=== PATIENT | male | born 1940 | race Caucasian/White ===

== ENCOUNTER 2017-06-30 23:50 | Inpatient (IN) | payer MEDICARE, OTHER ==
--- NOTE | 2017-07-01 00:09 | ED Physician Chart ---
ED Chief Complaint/HPI - Patient Information Date Seen:: 07/01/17 Time Seen:: 00:00 Chief Complaint:: increased agitation History of Present Illness:: Patient exhibiting increased agitation and increased anxiety [facility]. Historian:: Patient Review:: Nurse's Note Reviewed, Transfer documents Reviewed ED Review of Systems - Review of Systems General/Constitutional: No fever, No chills Skin: No skin lesions Head: No headache Eyes: No loss of vision ENT: No earache Neck: No neck pain, No swelling Cardio Vascular: No chest pain, No palpitations Pulmonary: SOB, Other (palacios has chronic shortness of breath) GI: No nausea, No vomiting, No diarrhea Musculoskeletal: No bone or joint pain Endocrine: No polyuria, No polydipsia Psychiatric: Prior psych history ED Past Medical History - Past Medical History Past Medical History: HTN, CHF, Asthma/COPD, Dyslipidemia Family History: None Social History: No Alcohol, Other Surgical History: other (surgeries for peptic ulcer disease) Psychiatricy History: Other (anxiety) Family Medical History - Family Member Mother History Unknown: Yes ED Physical Exam - Physical Examination General/Constitutional: Well-developed, well-nourished, Alert, No distress Head: Atraumatic Eyes: Lids, conjuctiva normal, PERRL Other Skin comments:: Stasis dermatitis lower leg ENMT: External ears, nose nl, TM canals nl, Nasal exam nl Other ENMT comments:: Edentulous Neck: No nuchal rigidity Respiratory: Nl effort/Exclusion, Clear to Auscultation Cardio Vascular: RRR, No murmur, gallop, rubs GI: No tenderness/rebounding/guarding Extremities: Normal digits & nails Other Extremities comments:: 2 out of 4 pretibial pitting edema Neuro/Psych: No focal deficits ED Labs/Radiology/EKG Results - Lab Results Results: Laboratory Results - last 24 hr 07/01/17 07/01/17 07/01/17 00:15 00:15 00:15 WBC 7.8 RBC 5.10 Hgb 13.8 Hct 41.4 MCV 81.1 MCH 27.0 MCHC Differential 33.3 RDW 13.0 Plt Count 261 MPV 7.7 Neutrophils % 69.1 Lymphocytes % 22.6 Monocytes % 5.8 Eosinophils % 2.4 Basophils % 0.1 Sodium 126 L Potassium 4.4 Chloride 93 L Carbon Dioxide 29.7 Anion Gap 7.7 BUN 22 Creatinine 0.9 Est GFR ( Amer) TNP Est GFR (Non-Af Amer) TNP BUN/Creatinine Ratio 24.4 Glucose 267 H Calcium 9.8 Total Bilirubin 0.9 AST 16 ALT 14 Alkaline Phosphatase 57 Total Protein 6.9 Albumin 4.3 Globulin 2.6 Albumin/Globulin Ratio 1.7 Triglycerides 104 Cholesterol 122 LDL Cholesterol Direct 63 L HDL Cholesterol 48 TSH 3.42 Urine Source Urine Color Urine Clarity Urine pH Ur Specific [place] Urine Protein Urine Glucose (UA) Urine Ketones Urine Blood Urine Nitrate Urine Bilirubin Urine Urobilinogen Ur Leukocyte Esterase Urine RBC Urine WBC Ur Epithelial Cells Urine Bacteria 07/01/17 00:30 WBC RBC Hgb Hct MCV MCH MCHC Differential RDW Plt Count MPV Neutrophils % Lymphocytes % Monocytes % Eosinophils % Basophils % Sodium Potassium Chloride Carbon Dioxide Anion Gap BUN Creatinine Est GFR ( Amer) Est GFR (Non-Af Amer) BUN/Creatinine Ratio Glucose Calcium Total Bilirubin AST ALT Alkaline Phosphatase Total Protein Albumin Globulin Albumin/Globulin Ratio Triglycerides Cholesterol LDL Cholesterol Direct HDL Cholesterol TSH Urine Source CLEAN C Urine Color YELLOW Urine Clarity CLEAR Urine pH 5.5 Ur Specific [place] 1.010 Urine Protein NEGATIVE Urine Glucose (UA) 500 H Urine Ketones NEGATIVE Urine Blood NEGATIVE Urine Nitrate NEGATIVE Urine Bilirubin NEGATIVE Urine Urobilinogen 0.2 Ur Leukocyte Esterase NEGATIVE Urine RBC 0-2 H Urine WBC 0-2 Ur Epithelial Cells RARE Urine Bacteria OCCASIONAL - EKG Interpretations Rate & Rhythm: atrial fibrillation with a rate of 70 [place]: left Comments:: Left bundle-branch block ED Septic Shock - . Is Septic Shock (SBP<90, OR Lactate>4 mmol\L) present?: No ED Reassessment (Disposition) - Reassessment Reassessment Condition:: Unchanged - Diagnosis Diagnosis:: Agitation - Aftercare/Follow up Instructions Aftercare/Follow-Up Instructions:: Refer to Discharge Instructions - Patient Disposition Admitted to:: [facility] Admitting Medical Physician:: Prasanth Negron Admitting Psych Physician:: Marla Wu
[2017-07-01 00:28] LABS: % BASOPHILS 0.1 % (0.0-2.0); % EOSINOPHILS 2.4 % (0.0-5.0); % LYMPHOCYTES 22.6 % (20.0-50.0); % MONOCYTES 5.8 % (2.0-10.0); % NEUTROPHILS 69.1 % (40.0-80.0); EOSINOPHILE ABSOLUTE 0.2 Th/cmm (0.1-0.4); HEMATOCRIT 41.4 % (41.0-60); HEMOGLOBIN 13.8 gm/dL (12-16); LYMPHOCYTE ABSOLUTE 1.8 Th/cmm (1.5-3.0); MEAN CELL VOLUME 81.1 fl (80-99); MEAN CORPUSCULAR HGB CONC 33.3 pg (28.0-36.0); MEAN PLATELET VOLUME 7.7 fl; MONOCYTE ABSOLUTE 0.5 Th/cmm (0.3-1.0); NEUTROPHILE ABSOLUTE 5.3 Th/cmm (1.8-8.0); PLATELET COUNT 261 Th/cmm (150-400); WHITE BLOOD COUNT 7.8 Th/cmm (4.8-10.8)
[2017-07-01 00:36] LABS: URINE MICROSCOPIC INDICATED? YES; URINE SOURCE CLEAN C
[2017-07-01 00:40] LABS: URINE BILIRUBIN NEGATIVE (NEGATIVE); URINE BLOOD NEGATIVE (NEGATIVE); URINE GLUCOSE (UA) 500 mg/dL (NEGATIVE); URINE KETONE NEGATIVE (NEGATIVE); URINE LEUKOCYTE ESTERASE NEGATIVE (NEGATIVE); URINE NITRATE NEGATIVE (NEGATIVE); URINE PH 5.5 (4.6 - 8.0); URINE PROTEIN NEGATIVE (NEGATIVE); URINE UROBILINOGEN 0.2 E.U./dL (0.2 - 1.0)
[2017-07-01 00:41] LABS: URINE BACTERIA OCCASIONAL /hpf (NONE SEEN); URINE CLARITY CLEAR (CLEAR); URINE COLOR YELLOW; URINE EPITHELIAL CELLS RARE /lpf (FEW); URINE RBC 0-2 /hpf (0-5); URINE WBC 0-2 /hpf (0-5)
[2017-07-01 00:42] LABS: ALB/GLOB RATIO 1.7 (1.0-1.8); ALBUMIN 4.3 gm/dL (4.2-5.5); ALKALINE PHOSPHATASE 57 U/L (34-104); ANION GAP 7.7 (7.0-16.0); BILIRUBIN,TOTAL 0.9 mg/dL (0.3-1.0); BUN - UREA NITROGEN 22 mg/dL (7-25); CALCIUM SERUM 9.8 mg/dL (8.6-10.3); CARBON DIOXIDE 29.7 mEq/L (21.0-31.0); CHLORIDE 93 mEq/L (98-107); CHOLESTEROL 122 mg/dL (<200); CREATININE - SERUM 0.9 mg/dL (0.7-1.3); GLUCOSE 267 mg/dL (70-105); HDL -HIGH DENSITY LIPOPROTEIN 48 mg/dL (23-92); POTASSIUM SERUM 4.4 mEq/L (3.5-5.1); SGOT 16 U/L (13-39); SGPT/ALT 14 U/L (7-52); SODIUM SERUM 126 mEq/L (136-145); TOTAL PROTEIN,SERUM 6.9 gm/dL (6.0-8.3); TRIGLYCERIDES 104 mg/dL (<150)
[2017-07-01 03:11] VITALS: BP 117/76
[2017-07-01] MEDS ORDERED: Albuterol/Ipratropium Neb 3 ML AERS HHN PRN (03:32)
[2017-07-01] MEDS ORDERED: Magnesium Hydroxide (MOM) 30 mL UDC PO PRN (03:32)
[2017-07-01] MEDS ORDERED: Oxymetazoline 0.05% 15 mL Spray NS PRN (03:32)
[2017-07-01] MEDS: Saline 0.65% Nasal Spray NS SCH ×3 (06:04→18:28)
[2017-07-01] MEDS ORDERED: INSULIN ASPART, RECOMBINANT 100 UNITS/ML SUBQ PRN ×2 (07:30)
[2017-07-01] MEDS ORDERED: INSULIN ASPART, RECOMBINANT 100 UNITS/ML SUBQ SCH (08:33)
[2017-07-01] MEDS: Multivitamin w/ Minerals Tab PO SCH (08:39)
[2017-07-01] MEDS: Aspirin 81mg Chewable Tab PO SCH (08:41)
[2017-07-01] MEDS: POLYETHYLENE GLYCOL 3350 17 GM PACK PO SCH (08:41)
[2017-07-01] MEDS ORDERED: Non-Formulary Item 1 EA (Melatonin [Melatonin] 3 MG) PO SCH (09:00)
[2017-07-01] MEDS: Fluticasone Propionate 0.05mg/Actuation 16gm Nasal Spray NS SCH ×2 (10:40→16:18)
[2017-07-01] MEDS: INSULIN ASPART, RECOMBINANT 100 UNITS/ML SUBQ SCH ×3 (12:11→21:20)
[2017-07-01 13:23] LABS: A1C % 11.4 % (4.0-6.0)
[2017-07-01] MEDS: Insulin Detemir 100 units/mL 10mL Vial SUBQ SCH (21:18)
--- NOTE | 2017-07-02 00:45 | History & Physical ---
ADMIT DATE: 07/01/2017 REASON FOR ADMISSION: Psychiatric disorders. HISTORY OF PRESENT ILLNESS: A 77-year-old male with underlying history of morbid obesity, hypertension, hyperlipidemia, diabetes mellitus, chronic atrial fibrillation, mental disorders, diabetic neuropathy, who was admitted for evaluation of the psychiatric illness by Dr. Wu who already requested medical H and P on this patient. The patient says he is doing fine. He denies any chest pain. No shortness of breath. No dizziness, palpitations or any other complaints. PAST MEDICAL HISTORY: Hypertension, hyperlipidemia, morbid obesity, chronic constipation, chronic AFib. FAMILY HISTORY: Noncontributory. SOCIAL HISTORY: Lives at home. No reported alcohol, tobacco or street drug use. CURRENT MEDICATIONS: On multiple medications including Diovan, tramadol, Aldactone, [place] nasal spray, Zocor, Xarelto, Seroquel, MiraLax, Afrin, Glucophage, Levemir, Neurontin, Lasix, Flonase, Colace, Coreg, aspirin, DuoNeb. REVIEW OF SYSTEMS: The patient denies any fever, no chills, no nausea, no vomiting, no abdominal pain, no diarrhea, no constipation, no headache or other complaints. PHYSICAL EXAMINATION: VITAL SIGNS: Temperature 97.7, pulse 78, respirations 19, blood pressure ____ 97% on room air. GENERAL APPEARANCE: The patient does not seem in acute distress, lying comfortably. HEENT: No neck stiffness. Negative rigidity. CHEST: Clear to auscultation. HEART: S1 and S2 normal. No murmurs. ABDOMEN: Soft and nontender. No guarding. NEUROLOGIC: The patient is awake, moves all extremities, grossly nonfocal exam. EXTREMITIES: ____ +1 pitting edema noted in both lower extremities. LABORATORY DATA: Available laboratory ____. ASSESSMENT: Hypertension, diabetes mellitus, hyperlipidemia, morbid obesity, depended edema in both lower extremities, mental health disorders, heart failure unspecified. PLAN: The patient will be continued on Xarelto, Diovan, Zocor, insulin. Blood sugar monitor by Accu-Chek. Monitor vital signs ____ oxygen support, bronchodilators as needed. Psych evaluation and management per Psychiatry. Plan of care discussed with nursing staff. JOB# [id number]
--- NOTE | 2017-07-02 01:31 | Psychosocial Evaluation ---
DATE OF SERVICE: INITIAL EVALUATION AND MENTAL STATUS EXAM PATIENT'S AGE: 77. SEX: Male. PHYSICIAN: Marla Wu M.D., M.P.H. CHIEF COMPLAINT: Agitation and confusion. HISTORY OF PRESENT ILLNESS: The patient is a 77-year-old male who was transferred from [facility] because of confusion and increased agitation. The patient also has been depressed and wants to be left alone and in angry mood. The patient also has been banging on the wall. The patient also has been suspicious and paranoid and unable to follow directions. PAST PSYCHIATRIC HISTORY: The patient has a history of dementia and also history of psychosis. Also has history of depression and the patient is on Celexa and gabapentin. SOCIAL HISTORY: The patient lives in [facility]. No known alcohol or drug use. ALLERGIES: BENZODIAZEPINES. MENTAL STATUS EXAMINATION: The patient appears his stated age. Agitated. Irritable and angry mood. Thought processes are circumstantial with flight of ideas. The patient denies hallucinations, but is paranoid and delusional. The patient denies suicidal or homicidal ideations. The patient is alert, but disoriented to time, place, person and situation. The patient was able to remember his date, but cannot remember where he lives or immediate memory is poor as well as recent memory. Poor insight and poor judgment. ASSESSMENT: PRIMARY DIAGNOSIS: Unspecified psychosis. SECONDARY DIAGNOSES: Alzheimer disease, moderate to severe, with psychotic features. TREATMENT PLAN: We will continue monitoring his behavior closely. Also, continue Celexa and will add Seroquel in a dose of 25 mg twice a day and will adjust the dose. ESTIMATED LENGTH OF STAY: 5-7 days. THE PATIENT'S STRENGTHS AND WEAKNESSES: The patient's strength seems to be in relatively fair health. Weakness is poor. Impulse control. AFTER DISCHARGE PLAN: Outpatient treatment and followup. The patient will return to [facility]. CRITERIA FOR DISCHARGE: Better impulse control and less agitated. [facility]# [id number]
[2017-07-02] MEDS: Saline 0.65% Nasal Spray NS SCH ×4 (01:34→18:28)
--- NOTE | 2017-07-02 02:00 | Progress Notes ---
DATE: 07/01/2017 SUBJECTIVE: Chart reviewed and the patient interviewed. Also discussed the patient's condition with the staff and reviewed records and labs. The patient continued to be extremely agitated and he is still yelling and screaming constantly. The patient also is still in angry and in irritable mood. The patient also is a high fall risk and continued to be monitored closely. The patient also is confused and forgetful. Otherwise, the patient is compliant with taking his medications with no side effects of medications except the patient is allergic to benzodiazepines. ASSESSMENT: The patient is still agitated and confused. TREATMENT PLAN: We will continue monitoring his behavior and his condition closely. Also, we will continue adjusting psychotropic medications and we will add Seroquel in a dose of 25 mg twice a day and will continue to follow up. [facility]# [id number]
[2017-07-02] MEDS: INSULIN ASPART, RECOMBINANT 100 UNITS/ML SUBQ SCH ×4 (06:37→21:32)
[2017-07-02] MEDS: POLYETHYLENE GLYCOL 3350 17 GM PACK PO SCH (08:18)
[2017-07-02] MEDS: Aspirin 81mg Chewable Tab PO SCH (08:20)
[2017-07-02] MEDS: Multivitamin w/ Minerals Tab PO SCH (08:21)
[2017-07-02] MEDS: Fluticasone Propionate 0.05mg/Actuation 16gm Nasal Spray NS SCH ×2 (08:24→16:40)
[2017-07-02] MEDS: Insulin Detemir 100 units/mL 10mL Vial SUBQ SCH (21:37)
[2017-07-03] MEDS: Saline 0.65% Nasal Spray NS SCH ×5 (00:36→23:37)
[2017-07-03] MEDS: INSULIN ASPART, RECOMBINANT 100 UNITS/ML SUBQ SCH ×4 (06:50→20:17)
--- NOTE | 2017-07-03 09:01 | Progress Notes ---
DATE: 07/02/2017 SUBJECTIVE: Chart reviewed and the patient interviewed. Also, discussed the patient's condition with the staff and reviewed records and labs. The patient is still agitated and he is still awake most of the time with difficulty sleeping at night. The patient also is still restless and he still has difficulty expressing himself or his feelings. Also, complaining of abdominal pain. The patient also is restless and needs lot of close monitoring. Otherwise, the patient is compliant with taking medications and no side effects of medications. ASSESSMENT: The patient is still agitated and psychotic. TREATMENT PLAN: Continue to monitor his behavior and condition closely. Also, continue to work on his anger and irritability and continue to follow up. [facility]# [id number]
[2017-07-03] MEDS: POLYETHYLENE GLYCOL 3350 17 GM PACK PO SCH (09:05)
[2017-07-03] MEDS: Multivitamin w/ Minerals Tab PO SCH (09:06)
[2017-07-03] MEDS: Aspirin 81mg Chewable Tab PO SCH (09:06)
[2017-07-03] MEDS: Fluticasone Propionate 0.05mg/Actuation 16gm Nasal Spray NS SCH ×2 (09:24→16:43)
[2017-07-03] MEDS ORDERED: Lactulose 10 Gm/15 mL 30mL UDC PO ONE (14:10)
[2017-07-03] MEDS: Insulin Detemir 100 units/mL 10mL Vial SUBQ SCH (20:17)
[2017-07-03] MEDS: Oxymetazoline 0.05% 15 mL Spray NS SCH (20:52)
--- NOTE | 2017-07-03 22:34 | General Progress Note ---
Subjective - Review of Systems Service Date: 07/03/17 Subjective: patient seen and examined c/o constipation denied vomiting or abd pain Objective - Results Result Diagrams: 07/01/17 00:15 07/01/17 00:15 Recent Labs: Laboratory Last Values WBC 7.8 Th/cmm (4.8-10.8) 07/01/17 00:15 RBC 5.10 Mil/cmm (3.80-5.80) 07/01/17 00:15 Hgb 13.8 gm/dL (12-16) 07/01/17 00:15 Hct 41.4 % (41.0-60) 07/01/17 00:15 MCV 81.1 fl (80-99) 07/01/17 00:15 MCH 27.0 pg (27.0-31.0) 07/01/17 00:15 MCHC Differential 33.3 pg (28.0-36.0) 07/01/17 00:15 RDW 13.0 % (11.5-20.0) 07/01/17 00:15 Plt Count 261 Th/cmm (150-400) 07/01/17 00:15 MPV 7.7 fl 07/01/17 00:15 Neutrophils % 69.1 % (40.0-80.0) 07/01/17 00:15 Lymphocytes % 22.6 % (20.0-50.0) 07/01/17 00:15 Monocytes % 5.8 % (2.0-10.0) 07/01/17 00:15 Eosinophils % 2.4 % (0.0-5.0) 07/01/17 00:15 Basophils % 0.1 % (0.0-2.0) 07/01/17 00:15 Sodium 126 mEq/L (136-145) L 07/01/17 00:15 Potassium 4.4 mEq/L (3.5-5.1) 07/01/17 00:15 Chloride 93 mEq/L (98-107) L 07/01/17 00:15 Carbon Dioxide 29.7 mEq/L (21.0-31.0) 07/01/17 00:15 Anion Gap 7.7 (7.0-16.0) 07/01/17 00:15 BUN 22 mg/dL (7-25) 07/01/17 00:15 Creatinine 0.9 mg/dL (0.7-1.3) 07/01/17 00:15 Est GFR ( Amer) TNP 07/01/17 00:15 Est GFR (Non-Af Amer) TNP 07/01/17 00:15 BUN/Creatinine Ratio 24.4 07/01/17 00:15 Glucose 267 mg/dL (70-105) H 07/01/17 00:15 POC Glucose 341 MG/DL (70 - 105) H 07/03/17 19:45 Hemoglobin A1c % 11.4 % (4.0-6.0) H 07/01/17 00:15 Calcium 9.8 mg/dL (8.6-10.3) 07/01/17 00:15 Total Bilirubin 0.9 mg/dL (0.3-1.0) 07/01/17 00:15 AST 16 U/L (13-39) 07/01/17 00:15 ALT 14 U/L (7-52) 07/01/17 00:15 Alkaline Phosphatase 57 U/L (34-104) 07/01/17 00:15 Total Protein 6.9 gm/dL (6.0-8.3) 07/01/17 00:15 Albumin 4.3 gm/dL (4.2-5.5) 07/01/17 00:15 Globulin 2.6 gm/dL 07/01/17 00:15 Albumin/Globulin Ratio 1.7 (1.0-1.8) 07/01/17 00:15 Triglycerides 104 mg/dL (<150) 07/01/17 00:15 Cholesterol 122 mg/dL (<200) 07/01/17 00:15 LDL Cholesterol Direct 63 mg/dL (75-193) L 07/01/17 00:15 HDL Cholesterol 48 mg/dL (23-92) 07/01/17 00:15 TSH 3.42 uIU/ml (0.34-5.60) 07/01/17 00:15 Urine Source CLEAN C 07/01/17 00:30 Urine Color YELLOW 07/01/17 00:30 Urine Clarity CLEAR (CLEAR) 07/01/17 00:30 Urine pH 5.5 (4.6 - 8.0) 07/01/17 00:30 Ur Specific [place] 1.010 (1.005-1.030) 07/01/17 00:30 Urine Protein NEGATIVE mg/dL (NEGATIVE) 07/01/17 00:30 Urine Glucose (UA) 500 mg/dL (NEGATIVE) H 07/01/17 00:30 Urine Ketones NEGATIVE mg/dL (NEGATIVE) 07/01/17 00:30 Urine Blood NEGATIVE (NEGATIVE) 07/01/17 00:30 Urine Nitrate NEGATIVE (NEGATIVE) 07/01/17 00:30 Urine Bilirubin NEGATIVE (NEGATIVE) 07/01/17 00:30 Urine Urobilinogen 0.2 E.U./dL (0.2 - 1.0) 07/01/17 00:30 Ur Leukocyte Esterase NEGATIVE (NEGATIVE) 07/01/17 00:30 Urine RBC 0-2 /hpf (0-5) H 07/01/17 00:30 Urine WBC 0-2 /hpf (0-5) 07/01/17 00:30 Ur Epithelial Cells RARE /lpf (FEW) 07/01/17 00:30 Urine Bacteria OCCASIONAL /hpf (NONE SEEN) 07/01/17 00:30 RPR NONREACTIVE (NONREACTIVE) 07/01/17 00:15 - Physical Exam Vitals and I&O: Vital Signs Temp 98.4 F 07/03/17 20:11 Pulse 62 07/03/17 20:57 Resp 20 07/03/17 20:57 BP 116/97 07/03/17 20:11 Pulse Ox 98 07/03/17 20:57 Intake & Output 07/03/17 07/03/17 07/04/17 06:59 18:59 06:59 Intake Total 720 1200 240 Output Total 1 Balance 720 1200 239 Intake: Oral 720 1200 240 Output: Stool 1 Other: # Voids 1 3 1 Active Medications: Current Medications Acetaminophen (Tylenol) 650 mg PO Q4HR PRN PRN Reason: Pain or Fever >101 Stop: 08/30/17 03:31 Albuterol/Ipratropium (Duoneb Neb) 3 ml HHN Q4HR PRN PRN Reason: Shortness of Breath Stop: 08/30/17 03:31 Aspirin (Aspirin Chewable) 81 mg PO DAILY AN Stop: 08/30/17 08:59 Last Admin: 07/03/17 09:06 Dose: 81 mg Carvedilol (Coreg) 3.125 mg PO BID [facility] Stop: 08/30/17 08:59 Last Admin: 07/03/17 16:41 Dose: 3.125 mg Citalopram Hydrobromide (Celexa) 20 mg PO DAILY AN PRN Reason: Protocol Stop: 08/30/17 08:59 Last Admin: 07/03/17 09:07 Dose: 20 mg Docusate Sodium (Colace) 250 mg PO DAILY AN Stop: 08/30/17 08:59 Last Admin: 07/03/17 09:06 Dose: 250 mg Fluticasone Propionate (Flonase) 1 spr NS BID AN Stop: 08/30/17 08:59 Last Admin: 07/03/17 16:43 Dose: 1 spr Furosemide (Lasix) 40 mg PO BID [facility] Stop: 08/30/17 08:59 Last Admin: 07/03/17 16:41 Dose: 40 mg Gabapentin (Neurontin) 100 mg PO BID AN Stop: 08/30/17 08:59 Last Admin: 07/03/17 16:42 Dose: 100 mg Insulin Aspart (Novolog) 1 units SUBQ ACHS [facility] PRN Reason: Protocol Stop: 08/30/17 08:32 Last Admin: 07/03/17 20:17 Dose: 8 unit Insulin Detemir (Levemir Insulin) 22 units SUBQ HS [facility] Stop: 08/30/17 20:59 Last Admin: 07/03/17 20:17 Dose: 22 units Lactulose (Cephulac) 30 gm PO PRN PRN Reason: Constipation Stop: 09/02/17 19:59 Metformin HCl (Glucophage) 500 mg PO AC [facility] Stop: 08/30/17 11:29 Last Admin: 07/03/17 16:41 Dose: 500 mg Oxymetazoline HCl (Afrin) 2 spr NS Q12HR [facility] Stop: 07/06/17 21:00 Last Admin: 07/03/17 20:52 Dose: 2 spr Polyethylene Glycol (Miralax) 17 gm PO DAILY [facility] Stop: 08/30/17 08:59 Last Admin: 07/03/17 09:05 Dose: 17 gm Quetiapine Fumarate (Seroquel) 25 mg PO BID AN PRN Reason: Protocol Stop: 08/30/17 08:59 Last Admin: 07/03/17 16:41 Dose: 25 mg Quetiapine Fumarate (Seroquel) 25 mg PO Q6HR PRN; Protocol PRN Reason: Agitation Stop: 08/30/17 11:59 Rivaroxaban (Xarelto) 20 mg PO HS AN Stop: 08/30/17 20:59 Last Admin: 07/03/17 20:18 Dose: 20 mg Simvastatin (Zocor) 40 mg PO HS AN PRN Reason: Protocol Stop: 08/30/17 20:59 Last Admin: 07/03/17 20:18 Dose: 40 mg Sodium Chloride ([place] Nasal [place]) 2 spr NS Q6HR AN Stop: 08/30/17 05:59 Last Admin: 07/03/17 18:48 Dose: 2 spr Spironolactone (Aldactone) 25 mg PO DAILY AN Stop: 08/30/17 08:59 Last Admin: 07/03/17 09:07 Dose: 25 mg Tramadol HCl (Ultram) 50 mg PO TID AN Stop: 08/30/17 08:59 Last Admin: 07/03/17 20:18 Dose: 50 mg Valsartan (Diovan) 160 mg PO DAILY [facility] Stop: 08/30/17 08:59 Last Admin: 07/03/17 09:07 Dose: 160 mg Cardiovascular: Regular rate Lungs: Clear to auscultation Abdomen: Soft, no Tender Assessment/Plan - Assessment Assessment: Constipation DM II DVT HTN Sleep apnea Psych disorder - Plan Plan: Lactulose ordered if not [place] suppository Oxygen Monitor vital and blood sugar Plan of care discussed with nursing staff [facility] Nutritional Asmnt/Malnutr-PDOC - Dietary Evaluation Malnutrition Findings (Please click <Entered> for more info): Nutritional Asmnt/Malnutrition Start: 07/01/17 14: 20 Text: Status: Complete Freq: Document 07/01/17 14:22 LCHENG (Rec: 07/01/17 14:41 [email or web address] [id number]) Nutritional Asmnt/Malnutrition Patient General Information Nutritional Screening High Risk Diagnosis agitation, psychosis NOS Pertinent Medical Hx/Surgical Hx HTN, CHF, asthma/COPD, dyslipidemia, anxiety, surgery for peptic ulcer disease Subjective Information Pt seen sleeping in bed at time of visit, lunch tray at bedside. Spoke with RN, pt is obese, not ambulated. Pt was anxious to get cans of macral fish, said it is essential to him. Current Diet Order/ Nutrition Support PHAM, CCHO, mech soft chopped Pertinent Medications colace, lasix, novolog, levemir, glucophage, miralax, seroquel Pertinent Labs 07/01 Na 126, K 4.4, Cl 93, BUN 22, Cr 0.9, Glucose 267, POC 286, A1c 11.4 Nutritional Hx/Data Height 1.88 m Height (Calculated Centimeters) 188.0 Current Weight (lbs) 153.768 kg Weight (Calculated Kilograms) 153.8 Weight (Calculated Grams) 611507.8 [place] Body Weight 190 % [place] Body Weight 178 Body Mass Index (BMI) 43.5 Weight Status Morbidly Obese GI Symptoms GI Symptoms None Last BM no record Difficult in: None Skin Integrity/Comment: rash to right leg, dryness Estimated Nutritional Goals BEE in Kcals: Adj wt of IBW Calories/Kcals/Kg 25-27 Kcals Calculated 3399-9124 Protein: Adj wt of IBW Protein g/k.8-1 Protein Calculated 82-103 Fluid: ml 2575-2781ml (1ml/kcal) Nutritional Problem 2. Problem Problem altered nutrition related lab values Etiology hx of DM, and possible excessive carbohydrates intake Signs/Symptoms: Glucose 267, POC 286, A1c 11.4 1. Problem Problem obesity Etiology possible excessive calorie intake and inadequate physical activities Signs/Symptoms: BMI 43.5 Malnutrition Alert Protein-Calorie Malnutrition N/A Is there a minimum of two criteria No selected? Query Text:Check all the applicable criteria. A minimum of two criteria are recommended for diagnosis of either severe or non-severe malnutrition. Intervention/Recommendation Comments 1. Continue with current diet as ordered. Will provide diebetes education when pt available. 2. Monitor PO intake, wt, labs and skin integrity 3. F/U as high risk in 2-3 days, 07/03-07/04 Expected Outcomes/Goals Expected Outcomes/Goals 1. PO intake to meet at least 75% of nutritional needs. 2. Wt stability, skin to remain intact, labs to improve
[2017-07-04] MEDS: Saline 0.65% Nasal Spray NS SCH ×2 (06:19→15:53)
[2017-07-04] MEDS: INSULIN ASPART, RECOMBINANT 100 UNITS/ML SUBQ SCH ×3 (06:30→17:49)
[2017-07-04] MEDS: Aspirin 81mg Chewable Tab PO SCH (12:37)
[2017-07-04] MEDS: Fluticasone Propionate 0.05mg/Actuation 16gm Nasal Spray NS SCH (12:41)
[2017-07-04] MEDS: Multivitamin w/ Minerals Tab PO SCH (12:43)
[2017-07-04] MEDS: POLYETHYLENE GLYCOL 3350 17 GM PACK PO SCH (12:44)
[2017-07-04] MEDS: Oxymetazoline 0.05% 15 mL Spray NS SCH (12:44)
[2017-07-04] MEDS ORDERED: Lactulose 10 Gm/15 mL 30mL UDC PO PRN (20:00)
--- NOTE | 2017-07-05 22:51 | Discharge Summary ---
DATE OF DISCHARGE: 07/04/2017 AGE: 77. SEX: Male. PHYSICIAN: Dr. Wu. FINAL DIAGNOSIS/PRIMARY DIAGNOSIS: Unspecified psychosis. SECONDARY DIAGNOSIS: Dementia, moderate to severe, with psychotic features. REASON FOR HOSPITALIZATION: The patient was admitted to the hospital from the [facility] because of increased agitation and irritability and difficulty following directions. HOSPITAL COURSE: The patient continued to be agitated and in irritable mood. The patient also was anxious. Also, was having severe mood swings and severe anxiety. Gradually, the patient's affect was brighter. The patient was less agitated and less irritable. Also, was compliant with taking his medications with no side effect of medications. Physical exam of the patient showed no major medical problems. AFTER DISCHARGE PLANS: The patient discharged from the hospital with plan for follow up out in [facility]. [facility]# [id number]
== END 2017-07-04 18:50 | disposition home or self-care (01) | DRG 885 ==
LOC: ER 23:50 → GERO 07-01 01:30
PROVIDERS: ADMIT Psychiatry & Neurology Psychiatry; ATTEND Psychiatry & Neurology Psychiatry
DX: F29 Unspecified psychosis not due to a substance or known physiological condition (principal); E11.40 Type 2 diabetes mellitus with diabetic neuropathy, unspecified; I48.2 Chronic atrial fibrillation; F02.81 Dementia in other diseases classified elsewhere, unspecified severity, with behavioral disturbance; Z68.41 Body mass index [BMI] 40.0-44.9, adult; I50.9 Heart failure, unspecified; I11.0 Hypertensive heart disease with heart failure; E66.01 Morbid (severe) obesity due to excess calories; G30.9 Alzheimer's disease, unspecified; Z66 Do not resuscitate; E78.5 Hyperlipidemia, unspecified; F41.9 Anxiety disorder, unspecified; J44.9 Chronic obstructive pulmonary disease, unspecified; K59.09 Other constipation; G47.30 Sleep apnea, unspecified; F39 Unspecified mood [affective] disorder; Z88.8 Allergy status to other drugs, medicaments and biological substances
CPT/HCPCS: 36415-UA; 80053-TC; 80061-TC; 81001-TC; 82948-90; 83036-90; 84443-TC; 85025-TC; 86592-TC; 93005; 94760; J1815; Z7610